=== PATIENT | female | born 1960 | race Caucasian/White ===

== ENCOUNTER 2016-08-03 11:56 | Emergency (ER) | payer MEDICARE, MEDICAID ==
[~2016-08-03] VITALS: Ht 162.6 cm; Wt 106.8 kg
[2016-08-03 11:59] VITALS: TEMP 98.6
[2016-08-03 13:21] LABS: VENOUS BLOOD GAS SAO2 83.3 % (60-80)
[2016-08-03 13:22] LABS: VENOUS BLOOD GAS SITE VENIPUNCTURE
[2016-08-03 13:32] LABS: BASO # 0.1 (0.0-0.2); BASO % 0.9 % (0.0-2.0); EOS # 0.2 (0.0-0.7); EOS % 1.4 % (0-4.0); GRAN % 63.2 % (42.2-75.2); HEMATOCRIT 43.6 % (37.0-47.0); HEMOGLOBIN 14.3 g/dl (12.5-16.0); LYMPH # 3.2 (1.2-3.4); LYMPH % 29.2 % (20.0-51.0); MEAN CELL VOLUME 88 fl (80.0-100.0); MEAN CORPUSCULAR HEMOGLOBIN 29 pg (27.0-31.0); MEAN CORPUSCULAR HGB CONC 33 g/dl (33.0-37.0); MONO # 0.6 (0.1-0.6); PLATELET COUNT 360 K/mm3 (130-400); RED BLOOD COUNT 4.95 M/mm3 (4.10-5.30); REDCELL DISTRIBUTION WIDTH-CV 13.6 % (11.5-14.5)
[2016-08-03 13:46] LABS: ANION GAP 9 mmol/L (7-16); BLOOD UREA NITROGEN 13 mg/dL (7-17); CALCIUM 8.6 mg/dL (8.4-10.2); CARBON DIOXIDE 23 mmol/L (22-30); CHLORIDE 104 mmol/L (98-107); CREATININE, serum 0.79 mg/dL (0.52-1.25); GLUCOSE 96 mg/dL (74-106); POTASSIUM 4.4 mmol/L (3.4-5.0); SODIUM 136 mmol/L (137-145)
[2016-08-03] MEDS ORDERED: LEVAQUIN 5500 MG/TA1 PO (13:53)
[2016-08-03] MEDS ORDERED: PREDNISONE20 MG PO (13:53)
[2016-08-03 13:55] LABS: B-TYPE NATRIURETIC PEPTIDE 209 pg/mL (0-125)
[2016-08-03 14:01] LABS: TROPONIN-I < 0.012 ng/mL (0.000-0.034)
[2016-08-03 14:15] VITALS: BP 113/65; PULSE 71
== END 2016-08-03 14:30 | disposition home or self-care (01) ==
LOC: COL.ER 11:56
PROVIDERS: Emergency Medicine
DX: J44.0 Chronic obstructive pulmonary disease with (acute) lower respiratory infection (principal); J20.9 Acute bronchitis, unspecified; J44.1 Chronic obstructive pulmonary disease with (acute) exacerbation; F17.210 Nicotine dependence, cigarettes, uncomplicated; R07.9 Chest pain, unspecified
CPT/HCPCS: J7512

== ENCOUNTER → 2016-10-06 | Outpatient (CLI) | payer MEDICARE, MEDICAID ==
[~2016-10-06] MED LIST: LEVAQUIN 5500 MG/TA1 PO; PREDNISONE20 MG PO
[2016-10-06 11:42] LABS: BASO # 0.1 (0.0-0.2); BASO % 1.1 % (0.0-2.0); EOS # 0.1 (0.0-0.7); EOS % 1.4 % (0-4.0); GRAN % 59.5 % (42.2-75.2); HEMATOCRIT 44.9 % (37.0-47.0); HEMOGLOBIN 14.8 g/dl (12.5-16.0); LYMPH # 3.2 (1.2-3.4); LYMPH % 32.3 % (20.0-51.0); MEAN CELL VOLUME 89 fl (80.0-100.0); MEAN CORPUSCULAR HEMOGLOBIN 29 pg (27.0-31.0); MEAN CORPUSCULAR HGB CONC 33 g/dl (33.0-37.0); MEAN PLATELET VOLUME 10.3 fl (7.4-10.4); MONO # 0.6 (0.1-0.6); MONO % 5.5 % (1.7-9.3); PLATELET COUNT 316 K/mm3 (130-400); RED BLOOD COUNT 5.07 M/mm3 (4.10-5.30); REDCELL DISTRIBUTION WIDTH-CV 13.6 % (11.5-14.5)
[2016-10-06 11:53] LABS: ADJUSTED CALCIUM 9.1 mg/dL (8.4-10.2); ALBUMIN 3.6 gm/dL (3.5-5.0); BILIRUBIN,TOTAL 0.5 mg/dL (0.0-1.0); CALCIUM 8.8 mg/dL (8.4-10.2); CREATININE, serum 0.81 mg/dL (0.52-1.25); POTASSIUM 4.4 mmol/L (3.4-5.0); TOTAL PROTEIN 6.8 gm/dL (6.4-8.2)
== END ==
LOC: COL.LAB 10:47
PROVIDERS: Internal Medicine Pulmonary Disease
DX: J44.0 Chronic obstructive pulmonary disease with (acute) lower respiratory infection (principal)

== ENCOUNTER 2017-05-08 14:31 | Emergency (ER) | payer MEDICARE, MEDICAID ==
[~2017-05-08] VITALS: Ht 162.6 cm; Wt 104.1 kg
[2017-05-08 14:35] VITALS: BP 117/82; TEMP 98.7
[2017-05-08] MEDS ORDERED: NAPROSYN500 MG PO (14:47)
[2017-05-08] MEDS ORDERED: CLEOCIN HCL300 MG PO (14:47)
[2017-05-08] MEDS ORDERED: INCRUSE EL62.5 MCG/A IH (14:54)
[2017-05-08] MEDS ORDERED: DALIRESP500 MCG PO (14:54)
[2017-05-08] MEDS ORDERED: VENTOLIN0.09 MG IH (14:54)
[2017-05-08] MEDS ORDERED: BUSPAR10 MG PO (14:55)
[2017-05-08] MEDS ORDERED: MIRAPEX 1MG PO (14:55)
[2017-05-08] MEDS ORDERED: XANAX 0.5MG0.5 MG PO (14:55)
[2017-05-08] MEDS ORDERED: DESYREL 100MG100 MG PO (14:56)
[2017-05-08] MEDS ORDERED: RT ADVAIR 528 DISKUS IH (14:56)
[2017-05-08] MEDS ORDERED: PRILOSEC 20MG20 MG PO (14:56)
[2017-05-08 15:33] VITALS: PULSE 88
== END 2017-05-08 15:35 | disposition home or self-care (01) ==
LOC: COL.ER 14:31
DX: K04.7 Periapical abscess without sinus (principal); J44.9 Chronic obstructive pulmonary disease, unspecified; F17.210 Nicotine dependence, cigarettes, uncomplicated; F12.90 Cannabis use, unspecified, uncomplicated; Z79.51 Long term (current) use of inhaled steroids